=== PATIENT | male | born 1990 | race Caucasian/White ===

== ENCOUNTER 2018-12-12 22:24 | Emergency (ER) | payer OTHER ==
[~2018-12-12] VITALS: Ht 170.1 cm; Wt 113.4 kg
[~2018-12-12 22:24] MED LIST: Motrin,Rufen800 MG PO
[2018-12-13] MEDS ORDERED: KEFLEX500 M1 PO (00:09)
== END 2018-12-13 00:36 | disposition home or self-care (01) ==
LOC: ED 22:24
DX: S61.314A Laceration without foreign body of right ring finger with damage to nail, initial encounter (principal); W45.8XXA Other foreign body or object entering through skin, initial encounter; Y93.89 Activity, other specified; Y92.89 Other specified places as the place of occurrence of the external cause; Y99.0 Civilian activity done for income or pay